=== PATIENT | female | born 1950 | race Caucasian/White ===

== ENCOUNTER 2019-07-06 07:54 | Outpatient (CLI) | payer MEDICARE, SELFPAY ==
[2019-07-06 08:44] LABS: Basophils Absolute Auto 0.1 K/mm3 (0.0-0.1); Basophils Percent Auto 0.5 % (0.2-1.2); Eosinophils Absolute Auto 0.1 K/mm3 (0-0.3); Eosinophils Percent Auto 1.3 % (0-4.4); Hematocrit 44.4 % (37.0-47.0); Hemoglobin 14.4 g/dL (12.0-15.0); Immature Granulocyte Absolute 0.04 K/mm3 (0.00-0.031); Immature Granulocyte Percent A 0.4 % (0-0.5); Lymphocytes Absolute Auto 3.48 K/mm3 (0.9-3.2); Lymphocytes Percent Auto 31.6 % (18.3-44.2); Mean Corpuscular HGB Conc 32.4 g/dl (32-36); Mean Corpuscular Volume 89.3 fl (80-100); Mean Platelet Volume 12.6 fl (7.4-10.4); Monocytes Absolute Auto 0.8 K/mm3 (0.1-0.6); Monocytes Percent Auto 6.9 % (2.6-8.5); Neutrophils Absolute Auto 6.5 K/mm3 (1.3-6.7); Neutrophils Percent Auto 59.3 % (45.5-73.1); Platelet Count Result 210 k/mm3 (150-375); Red Blood Count 4.97 M/mm3 (4.2-5.4); Red Cell Distribution Width 13.3 % (11.5-14.5)
[2019-07-06 08:58] LABS: Alanine Aminotransferase 50 U/L (4-35); Albumin Level 4.5 g/dL (3.5-5.1); Alkaline Phosphatase 56 U/L (38-126); Aspartate Amino Transferase 37 U/L (14-36); Bilirubin,Total 0.9 mg/dL (0.2-1.3); Blood Urea Nitrogen 15 mg/dL (7-17); Calcium 9.3 mg/dL (8.4-10.2); Carbon Dioxide 28 mmol/L (22-30); Chloride 99 mmol/L (98-107); Cholesterol 189 mg/dL (0-200); Estimated Glomerular Filt Rate > 60; Glucose 139 mg/dL (65-105); HDL Direct 42 mg/dL; Potassium 4.2 mmol/L (3.4-5.0); Sodium 137 mmol/L (137-145); Triglycerides 243 mg/dL (<150)
[2019-07-06 09:09] LABS: LDL Cholesterol Direct 104 mg/dL
[2019-07-06 09:12] LABS: Hemoglobin A1C 6.7 % (<5.7)
[2019-07-06 09:43] LABS: Vitamin D 25 Hydroxy 42.1 ng/mL
[2019-07-06 09:46] LABS: Creatinine Urine 85.8 mg/dL
[2019-07-06 10:00] LABS: MALB Creatinine Ratio < 7.0 mg/g (0-30); Microalbumin Urine Random < 6.0 mg/L (0-16.7)
== END 2019-07-06 07:55 | disposition home or self-care (01) ==
PROVIDERS: PCP Family Medicine; Visit Provider Family Medicine
DX: E55.9 Vitamin D deficiency, unspecified (principal); I10 Essential (primary) hypertension; E11.9 Type 2 diabetes mellitus without complications; E78.5 Hyperlipidemia, unspecified
CPT/HCPCS: 36415; 80053; 80061; 82043; 82306; 83036; 84443; 85025

== ENCOUNTER 2019-07-27 09:43 | Outpatient (CLI) | payer MEDICARE, SELFPAY ==
--- NOTE | ~2019-07-27 | MM_ITS ---
EXAMINATION: MM screening [facility] BI w vesna HISTORY: Screening mammogram TECHNIQUE: Craniocaudal and mediolateral oblique 3-D tomosynthesis images were obtained and synthetic 2-D images were generated. CAD analysis was submitted and interpreted. COMPARISON: 07/13/2018, 06/30/2017, 06/13/2016 BREAST PARENCHYMAL COMPOSITION: There are scattered areas of fibroglandular density. FINDINGS: Scattered benign-appearing calcifications are present. There is no evidence of suspicious m ass, calcification, or architectural distortion to suggest malignancy in either breast. There has bee n no suspicious interval change. IMPRESSION: 1. No mammographic evidence of malignancy. 2. Recommend routine screening mammography in one year. BI-RADS Category 2: Benign finding(s). Reviewed, dictated and finalized at location A. RNED ITEM CLERK
--- NOTE | ~2019-07-27 | DEXA_ITS ---
Bone Density Report Name: Jeri Do Age: 69 Sex: Female Ethnicity: White Date of : 1950 Indication: osteopenia; monitoring treatment; hysterectomy; Referring Provider: Salomon De Luna Study: Bone densitometry was performed. Exam Date: July 27, 2019 Accession number: [id number] Bone Density: Region BMD T-score Z-score Classification AP Spine (L1, L2, L3) 0.724 -2.7 -0.7 Osteoporosis Femoral Neck (Left) 0.550 -2.7 -0.9 Osteoporosis Total Hip (Left) 0.714 -1.9 -0.4 Osteopenia Total Hip Bilateral Avg 0.698 -2.0 -0.6 Osteopenia Femoral Neck (Right) 0.583 -2.4 -0.6 Osteopenia Total Hip (Right) 0.682 -2.1 -0.7 Osteopenia World Health Organization criteria for BMD impression classify patients as: Normal (T-score at or above -1.0), Osteopenia (T-score between -1.0 and -2.5), or Osteoporosis (T-score at or below -2.5). 10-year Fracture Risk: FRAX not reported because: Some T-score for Spine Total or Hip Total or Femoral Neck at or below -2.5 Treated for osteoporosis Previous Exams: Region Exam Age BMD T-score BMD Change BMD Change Date g/cm2 vs Baseline vs Previous AP Spine(L1, L2, L3) 07/27/2019 69 0.724 -2.7 0.012(1.7%)# -0.027(-3.6%)* 06/05/2014 64 0.751 -2.4 0.039(5.5%)# 0.039(5.5%)# 05/25/2012 62 0.712 -2.8 Total Hip(Left) 07/27/2019 69 0.714 -1.9 0.001(0.2%)# -0.016(-2.2%) 06/05/2014 64 0.731 -1.7 0.018(2.5%)# 0.018(2.5%)# 05/25/2012 62 0.713 -1.9 Total Hip(Right) 07/27/2019 69 0.682 -2.1 -0.012(-1.7%)# -0.010(-1.4%) 06/05/2014 64 0.692 -2.1 -0.002(-0.3%)# -0.002(-0.3%)# 05/25/2012 62 0.694 -2.0 *Denotes significance at 95% confidence level, LSC for AP Spine = 0.022 g/cm2, LSC for Total Hip = 0.027 g/cm2 Clinical Information Provided by Patient: Is being treated for osteoporosis Has used the following medications: Fosamax (i.e. alendronate), Vitamin D Has the following medical conditions: Hysterectomy Patient maximum height was 62 Menopause Age: 44 No regular weight bearing exercise Drinks caffeinated beverages Onset of menses at age 12 Number of children 0 Impression: The patient has osteoporosis, based on the Total Spine T-score. The BMD for the AP Spine(L1, L2, L3) decreased, changing by -3.6% since the last DXA exam. Discussion: SIGNIFICANT BONE LOSS OBSERVED. Adherence to therapy (including calcium and vitamin D intake) should be assessed. If compliance is not a factor,
== END 2019-07-27 09:44 | disposition home or self-care (01) ==
LOC: ANHIMG 09:48
PROVIDERS: PCP Family Medicine; Visit Provider Family Medicine
DX: M81.0 Age-related osteoporosis without current pathological fracture (principal); Z12.31 Encounter for screening mammogram for malignant neoplasm of breast
CPT/HCPCS: 77063; 77067; 77080

== ENCOUNTER 2020-04-30 09:03 | Outpatient (CLI) | payer MEDICARE, SELFPAY ==
[2020-04-30 09:35] LABS: Alanine Aminotransferase 60 U/L (4-35); Albumin Level 4.5 g/dL (3.5-5.1); Alkaline Phosphatase 49 U/L (38-126); Anion Gap 8 mmol/L (8-16); Aspartate Amino Transferase 54 U/L (14-36); Bilirubin,Total 1.1 mg/dL (0.2-1.3); Blood Urea Nitrogen 13 mg/dL (7-17); Calcium 9.6 mg/dL (8.4-10.2); Carbon Dioxide 29 mmol/L (22-30); Chloride 101 mmol/L (98-107); Estimated Glomerular Filt Rate > 60; Glucose 200 mg/dL (65-105); Potassium 4.4 mmol/L (3.4-5.0); Sodium 138 mmol/L (137-145)
[2020-04-30 09:37] LABS: Hemoglobin A1C 6.4 % (<5.7)
== END 2020-04-30 09:04 | disposition home or self-care (01) ==
PROVIDERS: PCP Family Medicine; Visit Provider Family Medicine
DX: E11.9 Type 2 diabetes mellitus without complications (principal); I10 Essential (primary) hypertension
CPT/HCPCS: 36415; 80053; 83036

== ENCOUNTER 2020-08-02 07:45 | Outpatient (CLI) | payer MEDICARE, SELFPAY ==
[2020-08-02 08:03] LABS: Basophils Absolute Auto 0.1 K/mm3 (0.0-0.1); Basophils Percent Auto 0.6 % (0.2-1.2); Eosinophils Absolute Auto 0.1 K/mm3 (0-0.3); Eosinophils Percent Auto 1.4 % (0-4.4); Hematocrit 44.6 % (37.0-47.0); Hemoglobin 14.6 g/dL (12.0-15.0); Immature Granulocyte Absolute 0.03 K/mm3 (0.00-0.031); Immature Granulocyte Percent A 0.3 % (0-0.5); Lymphocytes Absolute Auto 3.03 K/mm3 (0.9-3.2); Lymphocytes Percent Auto 30.7 % (18.3-44.2); Mean Corpuscular HGB Conc 32.7 g/dl (32-36); Mean Corpuscular Hemoglobin 29.6 pg (26-34); Mean Corpuscular Volume 90.3 fl (80-100); Mean Platelet Volume 12.3 fl (7.4-10.4); Monocytes Absolute Auto 0.8 K/mm3 (0.1-0.6); Monocytes Percent Auto 8.4 % (2.6-8.5); Neutrophils Absolute Auto 5.8 K/mm3 (1.3-6.7); Neutrophils Percent Auto 58.6 % (45.5-73.1); Platelet Count Result 199 k/mm3 (150-375); Red Blood Count 4.94 M/mm3 (4.2-5.4); Red Cell Distribution Width 13.4 % (11.5-14.5); White Blood Count 9.9 K/mm3 (4.5-10.0)
[2020-08-02 08:19] LABS: Alanine Aminotransferase 71 U/L (4-35); Albumin Level 4.3 g/dL (3.5-5.1); Alkaline Phosphatase 52 U/L (38-126); Anion Gap 8 mmol/L (8-16); Aspartate Amino Transferase 65 U/L (14-36); Bilirubin,Total 1.1 mg/dL (0.2-1.3); Blood Urea Nitrogen 13 mg/dL (7-17); Calcium 9.2 mg/dL (8.4-10.2); Carbon Dioxide 26 mmol/L (22-30); Chloride 104 mmol/L (98-107); Cholesterol 202 mg/dL (0-200); Estimated Glomerular Filt Rate > 60; Glucose 172 mg/dL (65-105); HDL Direct 43 mg/dL; Potassium 4.7 mmol/L (3.4-5.0); Sodium 138 mmol/L (137-145); Triglycerides 228 mg/dL (<150)
[2020-08-02 08:30] LABS: LDL Cholesterol Direct 115 mg/dL
[2020-08-02 09:00] LABS: Vitamin D 25 Hydroxy 51.2 ng/mL
[2020-08-02 09:06] LABS: Hemoglobin A1C 6.6 % (<5.7)
[2020-08-02 09:35] LABS: MALB Creatinine Ratio 5.9 mg/g (0-30); Microalbumin Urine Random 7.6 mg/L (0-16.7)
== END 2020-08-02 07:46 | disposition home or self-care (01) ==
PROVIDERS: PCP Family Medicine; Visit Provider Family Medicine
DX: E78.5 Hyperlipidemia, unspecified (principal); E11.9 Type 2 diabetes mellitus without complications; Z86.79 Personal history of other diseases of the circulatory system; E55.9 Vitamin D deficiency, unspecified
CPT/HCPCS: 36415; 80053; 80061; 82043; 82306; 83036; 84443; 85025

== ENCOUNTER 2020-08-03 15:10 | Outpatient (CLI) | payer MEDICARE, SELFPAY ==
--- NOTE | ~2020-08-03 | MM_ITS ---
EXAMINATION: MM screening [facility] w vesna HISTORY: Screening TECHNIQUE: Craniocaudal and mediolateral oblique 3-D tomosynthesis images were obtained and synthetic 2-D images were generated. CAD analysis was submitted and interpreted. COMPARISON: Comparison to multiple prior studies sequentially, with oldest reviewed study dated 05/09. BREAST PARENCHYMAL COMPOSITION: The breasts are heterogeneously dense, which may obscure small masses . FINDINGS: There are developing asymmetries medially in the left breast, best seen on CC view. The rig ht breast is stable without evidence for malignancy. IMPRESSION: 1. Developing left breast asymmetries. 2. Additional mammographic views and possible breast ultrasound are recommended. BI-RADS Category 0: Incomplete: Needs additional imaging evaluation. Reviewed, dictated and finalized at location A. MAKING SUPERVISOR IMPRESSION: 1. Developing left breast asymmetries. 2. Additional mammographic views and possible breast ultrasound are recommended . BI-RADS Category 0: Incomplete: Needs additional imaging evaluation.
== END 2020-08-03 15:11 | disposition home or self-care (01) ==
LOC: ANHIMG 15:12
PROVIDERS: PCP Family Medicine; Visit Provider Family Medicine
DX: Z12.31 Encounter for screening mammogram for malignant neoplasm of breast (principal); R92.8 Other abnormal and inconclusive findings on diagnostic imaging of breast
CPT/HCPCS: 77063; 77067

== ENCOUNTER 2020-08-07 09:44 | Outpatient (CLI) | payer MEDICARE, SELFPAY | END 2020-08-07 09:45 | disposition home or self-care (01) | LOC: ANHCOVIDVC 09:45 | PROVIDERS: PCP Family Medicine; Visit Provider Family Medicine | DX: Z23 Encounter for immunization (principal) | CPT/HCPCS: 0001A; 91300 ==

== ENCOUNTER 2020-08-08 09:36 | Outpatient (CLI) | payer MEDICARE, SELFPAY ==
--- NOTE | ~2020-08-08 | US_ITS ---
EXAMINATION: US right upper quadrant EXAM DATE: 08/08/2020 10:14 INDICATION: R74.8 - Abnormal levels of other serum enzymes. TECHNIQUE: Multiple grayscale and Doppler images of the abdomen right upper quadrant were obtained (b y a technologist who performed the scan) and subsequently reviewed. There is no prior study for margaret silva. FINDINGS: The pancreatic head and body are normal in appearance. The pancreatic tail is not visualized. There is echogenic liver parenchyma with poor penetration, hepatic steatosis. There are no focal liver le sions identified. There is no evidence of intrahepatic biliary duct dilation. Portal venous flow w as seen in the hepatopedal, normal direction and has normal Doppler waveform. No right-sided hydrone phrosis. Common bile duct measures 3 mm, which is normal. The gallbladder wall is normal in thickness, with ex pected amount of distention. No sonographic evidence of pericholecystic fluid. There is no cholelit hiases. Technologist performing exam reports patient did not demonstrate sonographic Richards's sign. Please note that this sign is less reliable in patients who have received pain medication. IMPRESSION: 1. Hepatic steatosis. Reviewed, dictated and finalized at location A. ELEVATOR WORKER IMPRESSION: 1. Hepatic steatosis.
== END 2020-08-08 09:37 | disposition home or self-care (01) ==
PROVIDERS: PCP Family Medicine; Visit Provider Family Medicine
DX: R74.8 Abnormal levels of other serum enzymes (principal); K76.0 Fatty (change of) liver, not elsewhere classified
CPT/HCPCS: 76705

== ENCOUNTER 2020-08-16 12:18 | Outpatient (CLI) | payer MEDICARE, SELFPAY ==
--- NOTE | ~2020-08-16 | MM_ITS ---
EXAMINATION: MM diagnostic mammo unilat LT HISTORY: Developing left breast asymmetries reported on 08/03/2020 screening mammogram examination TECHNIQUE: Additional 3-D tomosynthesis images of the left breast were performed and synthetic 2-D im ages were generated. Rolled medial and rolled lateral craniocaudal views of left breast. CAD analysis was submitted and interpreted. High resolution upper inner and lower inner left breast ultrasound wa s performed. COMPARISON: 08/03/2020 bilateral digital screening mammogram FINDINGS: MAMMOGRAPHIC FINDINGS: No reproducible mass or architectural distortion is detected. ULTRASOUND: There is no evidence of l abnormal solid or cystic lesion in the upper inner or lower inner quadrants . IMPRESSION: 1. No mammographic evidence of malignancy 2. Routine mammographic screening is recommended. BI-RADS Category 1: Negative Reviewed, dictated and finalized at location A. LE LEAK AND SQUEAK REPAIRER
--- NOTE | ~2020-08-16 | US_ITS ---
US breast LT limited DATE: 08/16/2020 13:06 Please refer to 08/16/2020 combined left diagnostic mammogram and left breast ultrasound report. IMPRESSION: BI-RADS Category 1: Negative Reviewed, dictated and finalized at Location A. Reviewed, dictated and finalized at location A. WARE MANAGER
== END 2020-08-16 12:19 | disposition home or self-care (01) ==
LOC: ANHIMG 12:19
PROVIDERS: PCP Family Medicine; Visit Provider Family Medicine
DX: R92.8 Other abnormal and inconclusive findings on diagnostic imaging of breast (principal)
CPT/HCPCS: 76642; 77065

== ENCOUNTER 2020-08-28 09:45 | Outpatient (CLI) | payer MEDICARE, SELFPAY | END 2020-08-28 09:46 | disposition home or self-care (01) | LOC: ANHCOVIDVC 09:45 | PROVIDERS: PCP Family Medicine | DX: Z23 Encounter for immunization (principal) | CPT/HCPCS: 0002A; 91300 ==

== ENCOUNTER 2021-09-19 01:11 | Day surgery (SDC) | payer MEDICARE, SELFPAY ==
[2021-09-05 15:58] VITALS: BMI 25.8
[2021-09-19 06:42] LABS: Glucose Point of Care 210 mg/dl (65-105)
[2021-09-19 06:45] VITALS: BP 150/91; PULSE 100; RESP 16; TEMP 36.5; O2SAT 99
[2021-09-19] MEDS: LACTATED RINGERS 1,000 ML 150 ML IV CONT (06:48)
--- NOTE | 2021-09-19 07:04 | WPDANESEPPF ---
Anes - Initial Pre Proc Eval Procedure: Operation Date: 09/19/21 08:00 Proposed Procedures p Screening Colonoscopy - Jeromy Nugent MD Date/Time: 09/19/21 07:04 Surgeon: Jeromy Nugent MD Pre Op Diagnosis: hx of colon polyps Patient Data Age: 71 Gender: F Height: 1.57 m Weight: 63 kg Last Vital Signs Temp 36.5 C 09/19/21 06:45 Pulse 100 09/19/21 06:45 Resp 16 09/19/21 06:45 BP 150/91 H 09/19/21 06:45 Pulse Ox 99 09/19/21 06:45 Allergies Allergy/AdvReac Type Severity Reaction Status Date / Time No Known Allergies Allergy Verified 09/19/21 06:42 Home Medications Medication Instructions Recorded Confirmed Type metoprolol succinate 25 mg 25 mg PO DAILY #90 tablet 05/23/21 09/19/21 Rx tablet,extended release 24 hr cholecalciferol (vitamin D3) 50 50 mcg PO DAILY 08/05/21 09/19/21 History mcg (2,000 unit) capsule glipizide 10 mg tablet, extended 10 mg PO DAILY #90 tablet 08/06/21 09/19/21 Rx release 24 hr loratadine [Claritin] 10 mg PO DAILY PRN 09/05/21 09/19/21 History metformin 1,000 mg PO HS 09/05/21 09/19/21 History alendronate 70 mg tablet 70 mg PO WEEKLY #12 tablet 09/17/21 09/19/21 Rx Laboratory Tests 09/19/21 06:38 POC Capillary Glucose 210 mg/dl H mg/dl (65-105) Patient hx anesthesia problems: none Family hx anesthesia problems: none Results Review: All pre-operative results and documents have been reviewed as part of the pre-operative evaluation. [facility] Past Medical History Medical History Dyslipidemia Elevated liver enzymes Essential (primary) hypertension Hepatic steatosis History of supraventricular tachycardia Osteoporosis without current pathological fracture Type 2 diabetes mellitus without complication, without long-term current use of insulin Vitamin D deficiency Surgical History Surgical History History of hernia repair (~2009) Incisional hernia repair 2009 History of total abdominal hysterectomy and bilateral salpingo-oophorectomy (~1973) 1973 Hx of colonoscopy (~2015) 2016 Hx of colonoscopy with polypectomy (~2015) 2015 Hx of dilation and curettage (~1970) 1970 S/P laparoscopic hernia repair (~2009) Status post tonsillectomy and adenoidectomy (~1956) 1956 Family History Family History Father Family history of Parkinson's disease Carcinoma of colon Sibling Family history of diabetes mellitus in first degree relative Mother Family history of heart disease in male family member before age 55 Other Diabetes mellitus Family history of cardiovascular disease Family history of coronary artery disease Hypertension Social History Social History Smoking status: Never smoker Second hand tobacco smoke exposure: No Alcohol intake: never Substance use: never Substance use type: does not use Living arrangements: with family Spiritual care concerns: No Anes - Eval Final PreProcedure Day of Procedure 09/19/21 07:04 Patient weight: normal Heart: regular rate and rhythm Lungs: clear to auscultation Airway: Mallampati scale class II Neurological: alert and oriented Last oral intake: >/= 8 hours ASA classification: II Emergent: no Anesthetic plan: proceed Anesthesia type and monitoring: general GIVS and standard monitoring Results Review: All pre-operative results and documents have been reviewed as part of the pre-operative evaluation. Informed Consent: The patient's anesthetic plan and its attendant risks and benefits were discussed with the patient/family/POA. Questions were solicited and answers provided to the satisfaction of the patient/family/POA.
--- NOTE | 2021-09-19 07:46 | WPDGICN ---
Assessment and Plan Assessment and plan (1) History of colon polyps: Code(s): Z86.010 - Personal history of colonic polyps Status: Acute Assessment and Plan: Patient has a personal history of colon polyps in the past. Plan is for surveillance colonoscopy at 5 year intervals. Additionally she has a family history of colon polyps in her sister and mother. And a family history is small-bowel cancer in her father and 2 uncles. (2) Family history of colonic polyps: Code(s): Z83.71 - Family history of colonic polyps Status: Acute GI Consult Note Consult date/time: 09/19/21 07:46 HPI: Jeri Do is a 71 year old female Presents for screening colonoscopy. Patient's current weight appetite and bowel movements are normal. She denies abdominal pain. She has had no bleeding. Patient most recent colonoscopy 2015 revealed hyperplastic polyp. She has a history of an adenomatous colon polyp removed in 2009. Patient's mother and sister both have had colon polyps. Family history is significant her father and 2 uncles all of had small bowel carcinoma. Patient presents today for screening colonoscopy. Review of Systems Review of Systems: All systems reviewed & are unremarkable except as noted in HPI and below PMFSH Past Medical History Medical History Dyslipidemia Elevated liver enzymes Essential (primary) hypertension Hepatic steatosis History of supraventricular tachycardia Osteoporosis without current pathological fracture Type 2 diabetes mellitus without complication, without long-term current use of insulin Vitamin D deficiency Surgical History Surgical History History of hernia repair (~2009) Incisional hernia repair 2010 History of total abdominal hysterectomy and bilateral salpingo-oophorectomy (~1973) 1973 Hx of colonoscopy (~2015) 2015 Hx of colonoscopy with polypectomy (~2015) 2016 Hx of dilation and curettage (~1970) 1970 S/P laparoscopic hernia repair (~2009) Status post tonsillectomy and adenoidectomy (~1956) 1956 Family History Family History Father Family history of Parkinson's disease Carcinoma of colon Sibling Family history of diabetes mellitus in first degree relative Mother Family history of heart disease in male family member before age 55 Other Diabetes mellitus Family history of cardiovascular disease Family history of coronary artery disease Hypertension Social History Social History Smoking status: Never smoker Second hand tobacco smoke exposure: No Alcohol intake: never Substance use: never Substance use type: does not use Living arrangements: with family Spiritual care concerns: No Meds Home Medications and Allergies Home Medications Medication Instructions Recorded Confirmed Type metoprolol succinate 25 mg 25 mg PO DAILY #90 tablet 05/23/21 09/19/21 Rx tablet,extended release 24 hr cholecalciferol (vitamin D3) 50 50 mcg PO DAILY 08/05/21 09/19/21 History mcg (2,000 unit) capsule glipizide 10 mg tablet, extended 10 mg PO DAILY #90 tablet 08/06/21 09/19/21 Rx release 24 hr loratadine [Claritin] 10 mg PO DAILY PRN 09/05/21 09/19/21 History metformin 1,000 mg PO HS 09/05/21 09/19/21 History alendronate 70 mg tablet 70 mg PO WEEKLY #12 tablet 09/17/21 09/19/21 Rx Allergies Allergy/AdvReac Type Severity Reaction Status Date / Time No Known Allergies Allergy Verified 09/19/21 06:42 Vital Signs Vital Signs - 24 hr 09/19/21 06:45 Temperature 97.7 F Pulse Rate 100 Respiratory Rate 16 Blood Pressure 150/91 H Pulse Oximetry 99 Exam Narrative: Physical exam reveals patient to be alert. Vital signs stable. HEENT exam is unremarkable. Patient is anicteric. Lungs are clear t
[2021-09-19 08:10] VITALS: BP 91/52; PULSE 78; RESP 18; O2SAT 96
[2021-09-19 08:20] VITALS: BP 110/64; PULSE 80; RESP 20; O2SAT 98
[2021-09-19 08:30] VITALS: BP 125/72; PULSE 70; RESP 18; O2SAT 99
== END 2021-09-19 08:43 | disposition home or self-care (01) ==
PROVIDERS: PCP Family Medicine; Visit Provider Internal Medicine Gastroenterology
PROC: 0DJD8ZZ Inspection of Lower Intestinal Tract, Via Natural or Artificial Opening Endoscopic (ICD-10-PCS; CPT 45378; principal; 2021-09-19 08:00)
DX: Z12.11 Encounter for screening for malignant neoplasm of colon (principal); Z80.0 Family history of malignant neoplasm of digestive organs; E78.5 Hyperlipidemia, unspecified; I10 Essential (primary) hypertension; K76.0 Fatty (change of) liver, not elsewhere classified; M81.0 Age-related osteoporosis without current pathological fracture; E11.9 Type 2 diabetes mellitus without complications; E55.9 Vitamin D deficiency, unspecified; K64.8 Other hemorrhoids
CPT/HCPCS: G0105; 82948; J2001; J2704; J7120

== ENCOUNTER 2021-09-24 16:08 | Outpatient (CLI) | payer MEDICARE, SELFPAY ==
--- NOTE | ~2021-09-24 | MM_ITS ---
EXAMINATION: MM screening [facility] w vesna HISTORY: Screening mammogram TECHNIQUE: Craniocaudal and mediolateral oblique 3-D tomosynthesis images were obtained and synthetic 2-D images were generated. CAD analysis was submitted and interpreted. COMPARISON: 08/16/2020 diagnostic left mammogram and limited left breast ultrasound 08/03/2020, bilateral screening mammogram examinations BREAST PARENCHYMAL COMPOSITION: There are scattered areas of fibroglandular density. FINDINGS: There is no evidence of suspicious mass, calcification, or architectural distortion to sugg est malignancy in either breast. There has been no suspicious interval change. IMPRESSION: 1. No mammographic evidence of malignancy. 2. Recommend routine screening mammography in one year. BI-RADS Category 1: Negative Reviewed, dictated and finalized at location A.
== END 2021-09-24 16:09 | disposition home or self-care (01) ==
PROVIDERS: PCP Family Medicine; Visit Provider Family Medicine
DX: Z12.31 Encounter for screening mammogram for malignant neoplasm of breast (principal)
CPT/HCPCS: 77063; 77067

== ENCOUNTER 2022-02-03 11:47 | Outpatient (CLI) | payer MEDICARE, SELFPAY ==
[2022-02-03 18:29] LABS: Basophils Absolute Auto 0.1 K/mm3 (0.0-0.1); Basophils Percent Auto 0.6 % (0.2-1.2); Eosinophils Absolute Auto 0.2 K/mm3 (0-0.3); Eosinophils Percent Auto 1.8 % (0-4.4); Hematocrit 46.6 % (37.0-47.0); Hemoglobin 14.4 g/dL (12.0-15.0); Immature Granulocyte Absolute 0.04 K/mm3 (0.00-0.031); Immature Granulocyte Percent A 0.3 % (0-0.5); Immature Platelet Fraction Pct 18.8 % (0.9-11.2); Lymphocytes Absolute Auto 4.65 K/mm3 (0.9-3.2); Mean Corpuscular HGB Conc 30.9 g/dl (32-36); Mean Corpuscular Hemoglobin 28.1 pg (26-34); Mean Corpuscular Volume 90.8 fl (80-100); Mean Platelet Volume 13.3 fl (7.4-10.4); Monocytes Absolute Auto 0.9 K/mm3 (0.1-0.6); Monocytes Percent Auto 6.8 % (2.6-8.5); Neutrophils Absolute Auto 6.7 K/mm3 (1.3-6.7); Neutrophils Percent Auto 53.5 % (45.5-73.1); Platelet Count Result 244 k/mm3 (150-375); Red Blood Count 5.13 M/mm3 (4.2-5.4); Red Cell Distribution Width 13.8 % (11.5-14.5); White Blood Count 12.6 K/mm3 (4.5-10.0)
[2022-02-03 18:59] LABS: Alanine Aminotransferase 59 U/L (6-35); Alkaline Phosphatase 73 U/L (38-126); Anion Gap 4 mmol/L (8-16); Aspartate Amino Transferase 59 U/L (14-36); Blood Urea Nitrogen 13 mg/dL (7-17); Calcium 9.8 mg/dL (8.4-10.2); Carbon Dioxide 31 mmol/L (22-30); Chloride 100 mmol/L (98-107); Cholesterol 226 mg/dL (0-200); Estimated Glomerular Filt Rate > 60; Glucose 108 mg/dL (65-110); HDL Direct 47 mg/dL; Potassium 4.4 mmol/L (3.4-5.0); Sodium 135 mmol/L (137-145); Triglycerides 247 mg/dL (<150)
[2022-02-03 19:09] LABS: Creatinine Urine 55.6 mg/dL
[2022-02-03 19:10] LABS: LDL Cholesterol Direct 121 mg/dL
[2022-02-03 19:33] LABS: Microalbumin Urine Random < 6.0 mg/L (0-16.7)
[2022-02-03 19:34] LABS: MALB Creatinine Ratio < 10.8 mg/g (0-30)
[2022-02-03 19:55] LABS: Vitamin D 25 Hydroxy 56.6 ng/mL
== END 2022-02-03 11:48 | disposition home or self-care (01) ==
PROVIDERS: PCP Family Medicine; Visit Provider Nurse Practitioner
DX: E78.5 Hyperlipidemia, unspecified (principal); E55.9 Vitamin D deficiency, unspecified; I10 Essential (primary) hypertension; E11.9 Type 2 diabetes mellitus without complications
CPT/HCPCS: 36415; 80053; 80061; 82043; 82306; 83036; 85025; 85055

== ENCOUNTER 2022-03-05 15:23 | Outpatient (CLI) | payer MEDICARE, SELFPAY ==
[2022-03-05 20:26] LABS: Basophils Absolute Auto 0.1 K/mm3 (0.0-0.1); Basophils Percent Auto 0.5 % (0.2-1.2); Eosinophils Absolute Auto 0.3 K/mm3 (0-0.3); Eosinophils Percent Auto 1.9 % (0-4.4); Hematocrit 44.6 % (37.0-47.0); Immature Granulocyte Absolute 0.03 K/mm3 (0.00-0.031); Immature Granulocyte Percent A 0.2 % (0-0.5); Immature Platelet Fraction Pct 19.3 % (0.9-11.2); Lymphocytes Absolute Auto 4.41 K/mm3 (0.9-3.2); Lymphocytes Percent Auto 33.1 % (18.3-44.2); Mean Corpuscular HGB Conc 31.4 g/dl (32-36); Mean Corpuscular Hemoglobin 28.8 pg (26-34); Mean Corpuscular Volume 91.8 fl (80-100); Mean Platelet Volume 13.8 fl (7.4-10.4); Monocytes Absolute Auto 1.6 K/mm3 (0.1-0.6); Monocytes Percent Auto 11.6 % (2.6-8.5); Neutrophils Percent Auto 52.7 % (45.5-73.1); Platelet Count Result 218 k/mm3 (150-375); Red Blood Count 4.86 M/mm3 (4.2-5.4); Red Cell Distribution Width 14.1 % (11.5-14.5); White Blood Count 13.3 K/mm3 (4.5-10.0)
== END 2022-03-05 15:24 | disposition home or self-care (01) ==
PROVIDERS: PCP Family Medicine; Visit Provider Nurse Practitioner
DX: D72.829 Elevated white blood cell count, unspecified (principal)
CPT/HCPCS: 36415; 85025; 85055

== ENCOUNTER 2022-08-13 10:41 | Outpatient (CLI) | payer MEDICARE, SELFPAY ==
[2022-08-13 18:09] LABS: Basophils Absolute Auto 0.1 K/mm3 (0.0-0.1); Basophils Percent Auto 0.5 % (0.2-1.2); Eosinophils Absolute Auto 0.2 K/mm3 (0-0.3); Eosinophils Percent Auto 1.3 % (0-4.4); Hematocrit 46.1 % (37.0-47.0); Hemoglobin 14.4 g/dL (12.0-15.0); Immature Granulocyte Absolute 0.05 K/mm3 (0.00-0.031); Immature Granulocyte Percent A 0.4 % (0-0.5); Immature Platelet Fraction Pct 18.3 % (0.9-11.2); Lymphocytes Absolute Auto 4.22 K/mm3 (0.9-3.2); Lymphocytes Percent Auto 32.6 % (18.3-44.2); Mean Corpuscular HGB Conc 31.2 g/dl (32-36); Mean Corpuscular Hemoglobin 28.3 pg (26-34); Mean Corpuscular Volume 90.6 fl (80-100); Mean Platelet Volume 13.2 fl (7.4-10.4); Monocytes Percent Auto 7.3 % (2.6-8.5); Neutrophils Absolute Auto 7.5 K/mm3 (1.3-6.7); Neutrophils Percent Auto 57.9 % (45.5-73.1); Platelet Count Result 241 k/mm3 (150-375); Red Blood Count 5.09 M/mm3 (4.2-5.4)
[2022-08-13 18:16] LABS: Alanine Aminotransferase 49 U/L (6-35); Albumin Level 4.8 g/dL (3.5-5.1); Alkaline Phosphatase 61 U/L (38-126); Anion Gap 7 mmol/L (8-16); Aspartate Amino Transferase 46 U/L (14-36); Bilirubin,Total 1.3 mg/dL (0.2-1.3); Blood Urea Nitrogen 14 mg/dL (7-17); Calcium 9.2 mg/dL (8.4-10.2); Carbon Dioxide 31 mmol/L (22-30); Chloride 104 mmol/L (98-107); Cholesterol 216 mg/dL (0-200); Estimated Glomerular Filt Rate > 60; Glucose 97 mg/dL (65-110); HDL Direct 45 mg/dL; Potassium 4.4 mmol/L (3.4-5.0); Sodium 142 mmol/L (137-145); Triglycerides 278 mg/dL (<150)
[2022-08-13 18:29] LABS: LDL Cholesterol Direct 117 mg/dL
[2022-08-13 18:50] LABS: Creatinine Urine 49.6 mg/dL
[2022-08-13 18:57] LABS: Vitamin D 25 Hydroxy 57.1 ng/mL
[2022-08-13 20:01] LABS: MALB Creatinine Ratio < 12.1 mg/g (0-30); Microalbumin Urine Random < 6.0 mg/L (0-16.7)
== END 2022-08-13 10:42 | disposition home or self-care (01) ==
LOC: ANHGOSHLAB 10:42
PROVIDERS: PCP Family Medicine; Visit Provider Family Medicine
DX: E55.9 Vitamin D deficiency, unspecified (principal); E11.9 Type 2 diabetes mellitus without complications; I10 Essential (primary) hypertension; H61.21 Impacted cerumen, right ear; E78.5 Hyperlipidemia, unspecified; E53.8 Deficiency of other specified B group vitamins
CPT/HCPCS: 36415; 80053; 80061; 82043; 82306; 82607; 83036; 84443; 85025; 85055

== ENCOUNTER 2023-02-18 10:25 | Outpatient (CLI) | payer MEDICARE, SELFPAY ==
[2023-02-18 19:08] LABS: Basophils Absolute Auto 0.1 K/mm3 (0.0-0.1); Basophils Percent Auto 0.5 % (0.2-1.2); Eosinophils Absolute Auto 0.1 K/mm3 (0-0.3); Eosinophils Percent Auto 0.7 % (0-4.4); Hematocrit 44.9 % (37.0-47.0); Hemoglobin 14.1 g/dL (12.0-15.0); Immature Granulocyte Absolute 0.03 K/mm3 (0.00-0.031); Immature Granulocyte Percent A 0.3 % (0-0.5); Immature Platelet Fraction Pct 18.6 % (0.9-11.2); Lymphocytes Percent Auto 29.1 % (18.3-44.2); Mean Corpuscular HGB Conc 31.4 g/dl (32-36); Mean Corpuscular Hemoglobin 28.3 pg (26-34); Mean Corpuscular Volume 90.2 fl (80-100); Mean Platelet Volume 13.5 fl (7.4-10.4); Monocytes Absolute Auto 0.8 K/mm3 (0.1-0.6); Monocytes Percent Auto 6.9 % (2.6-8.5); Neutrophils Absolute Auto 6.9 K/mm3 (1.3-6.7); Neutrophils Percent Auto 62.5 % (45.5-73.1); Platelet Count Result 221 k/mm3 (150-375); Red Blood Count 4.98 M/mm3 (4.2-5.4); Red Cell Distribution Width 14.3 % (11.5-14.5)
[2023-02-18 19:23] LABS: Alanine Aminotransferase 48 U/L (6-35); Albumin Level 4.2 g/dL (3.5-5.1); Alkaline Phosphatase 54 U/L (38-126); Anion Gap 6 mmol/L (8-16); Aspartate Amino Transferase 42 U/L (14-36); Blood Urea Nitrogen 14 mg/dL (7-17); Calcium 9.2 mg/dL (8.4-10.2); Carbon Dioxide 31 mmol/L (22-30); Chloride 102 mmol/L (98-107); Estimated Glomerular Filt Rate > 60; Glucose 186 mg/dL (65-110); Potassium 4.2 mmol/L (3.4-5.0); Sodium 139 mmol/L (137-145)
[2023-02-18 20:56] LABS: Hemoglobin A1C 6.9 % (<5.7)
== END 2023-02-18 10:26 | disposition home or self-care (01) ==
PROVIDERS: PCP Family Medicine; Visit Provider Family Medicine
DX: E11.9 Type 2 diabetes mellitus without complications (principal); R74.8 Abnormal levels of other serum enzymes; Z79.899 Other long term (current) drug therapy; I10 Essential (primary) hypertension
CPT/HCPCS: 36415; 80053; 83036; 85025; 85055

== ENCOUNTER 2023-08-25 11:35 | Outpatient (CLI) | payer MEDICARE, SELFPAY ==
[2023-08-25 13:36] LABS: Basophils Absolute Auto 0.1 K/mm3 (0.0-0.1); Basophils Percent Auto 0.4 % (0.2-1.2); Eosinophils Absolute Auto 0.1 K/mm3 (0-0.3); Hematocrit 46.9 % (37.0-47.0); Hemoglobin 14.9 g/dL (12.0-15.0); Immature Granulocyte Absolute 0.03 K/mm3 (0.00-0.031); Immature Granulocyte Percent A 0.3 % (0-0.5); Lymphocytes Absolute Auto 3.48 K/mm3 (0.9-3.2); Lymphocytes Percent Auto 29.3 % (18.3-44.2); Mean Corpuscular HGB Conc 31.8 g/dl (32-36); Mean Corpuscular Hemoglobin 28.4 pg (26-34); Mean Corpuscular Volume 89.3 fl (80-100); Monocytes Absolute Auto 0.8 K/mm3 (0.1-0.6); Neutrophils Absolute Auto 7.4 K/mm3 (1.3-6.7); Platelet Count Result 219 k/mm3 (150-375); Red Blood Count 5.25 M/mm3 (4.2-5.4); Red Cell Distribution Width 14.1 % (11.5-14.5); White Blood Count 11.9 K/mm3 (4.5-10.0)
[2023-08-25 14:03] LABS: Creatinine Urine 20.6 mg/dL
[2023-08-25 14:09] LABS: Vitamin D 25 Hydroxy 74.4 ng/mL
[2023-08-25 14:14] LABS: Microalbumin Urine Random < 6.0 mg/L (0-16.7)
[2023-08-25 14:43] LABS: Alanine Aminotransferase 25 U/L (6-35); Albumin Level 4.6 g/dL (3.5-5.1); Alkaline Phosphatase 57 U/L (38-126); Anion Gap 6 mmol/L (8-16); Aspartate Amino Transferase 35 U/L (14-36); Blood Urea Nitrogen 14 mg/dL (7-17); Calcium 9.5 mg/dL (8.4-10.2); Carbon Dioxide 31 mmol/L (22-30); Chloride 103 mmol/L (98-107); Cholesterol 211 mg/dL (0-200); Estimated Glomerular Filt Rate > 60; Glucose 94 mg/dL (65-110); HDL Direct 49 mg/dL; Potassium 4.1 mmol/L (3.4-5.0); Sodium 140 mmol/L (137-145); Triglycerides 276 mg/dL (<150)
[2023-08-25 14:54] LABS: LDL Cholesterol Direct 119 mg/dL
[2023-08-25 15:58] LABS: Hemoglobin A1C 7.1 % (<5.7)
== END 2023-08-25 11:36 | disposition home or self-care (01) ==
LOC: ANHGOSHLAB 11:37
PROVIDERS: PCP Family Medicine; Visit Provider Family Medicine
DX: E78.5 Hyperlipidemia, unspecified (principal); I10 Essential (primary) hypertension; E11.9 Type 2 diabetes mellitus without complications; E55.9 Vitamin D deficiency, unspecified; E53.8 Deficiency of other specified B group vitamins; Z86.79 Personal history of other diseases of the circulatory system
CPT/HCPCS: 36415; 80053; 80061; 82043; 82306; 82607; 83036; 84443; 85025

== ENCOUNTER 2024-02-18 13:52 | Outpatient (CLI) | payer MEDICARE, SELFPAY ==
--- NOTE | ~2024-02-18 | DEXA_ITS ---
Bone Density Report Name: YASMIN DANIEL Age: 74 Sex: Female Ethnicity: White Date of : 1950 Indication: postmenopausal; screening for osteoporosis; history of glucocorticoids; hysterectomy; Referring Provider: FAIAZN YANEZ Study: Bone densitometry was performed. Exam Date: February 18, 2024 Accession number: [id number] Bone Density: Region BMD T-score Z-score Classification AP Spine(L1-L4) 0.892 -1.4 0.9 Osteopenia Femoral Neck (Left) 0.537 -2.8 -0.8 Osteoporosis Total Hip (Left) 0.752 -1.6 0.2 Osteopenia Femoral Neck (Right) 0.619 -2.1 0.0 Osteopenia Total Hip (Right) 0.743 -1.6 0.1 Osteopenia Total Hip Mean 0.747 -1.6 0.2 Osteopenia World Health Organization criteria for BMD impression classify patients as: Normal (T-score at or above -1.0), Osteopenia (T-score between -1.0 and -2.5), or Osteoporosis (T-score at or below -2.5). 10-year Fracture Risk: FRAX not reported because: Some T-score for Spine Total or Hip Total or Femoral Neck at or below -2.5 Treated for osteoporosis Clinical Information Provided by Patient: Has taken Glucocorticoids Is being treated for osteoporosis Has used the following medications: Fosamax (i.e. alendronate), Vitamin D Has the following medical conditions: Hysterectomy Patient maximum height was 62 Menopause Age: 44 No regular weight bearing exercise Does not regularly consume dairy products Drinks caffeinated beverages Onset of menses at age 11 Number of children 0 Impression: The patient has osteoporosis, based on the Left Femoral Neck T-score. The patient has risk factors, including: history of glucocorticoid therapy. Discussion: It is important to ask patients whether they are taking their medications and to encourage continued and appropriate compliance with their osteoporosis therapies to reduce fracture risk. It is also important to review their risk factors and encourage appropriate calcium and vitamin D intakes, exercise, fall prevention and other lifestyle measures. Follow-Up: Consider a repeat BMD and Vertebral Fracture Assessment (VFA) exam in 2 years or sooner if medically necessary, to reassess this patient's status. Reported by: MARY on 02/18/2024 2:22:00 PM. Reviewed, dictated and finalized at location Bernabe OWENS
--- NOTE | ~2024-02-18 | MM_ITS ---
EXAMINATION: MM screening [facility] BI w vesna HISTORY: Screening mammogram TECHNIQUE: Craniocaudal and mediolateral oblique 3-D tomosynthesis images were obtained and synthetic 2-D images were generated. CAD analysis was submitted and interpreted. COMPARISON: 09/24/2021, 08/16/2020, 08/03/2020, 07/27/2019 BREAST PARENCHYMAL COMPOSITION:Not Dense. There are scattered areas of fibroglandular density. FINDINGS: No suspicious mass, calcification, or architectural distortion are identified in either sangeetha ast to suggest malignancy. There has been no suspicious interval change. IMPRESSION: No mammographic evidence of malignancy. Recommend routine screening mammography in one year. BI-RADS Category 1: Negative Reviewed, dictated and finalized at location .
== END 2024-02-18 13:53 | disposition home or self-care (01) ==
LOC: ANHIMG 13:53
PROVIDERS: PCP Family Medicine; Visit Provider Family Medicine
DX: Z12.31 Encounter for screening mammogram for malignant neoplasm of breast (principal); Z78.0 Asymptomatic menopausal state; M85.88 Other specified disorders of bone density and structure, other site; M81.0 Age-related osteoporosis without current pathological fracture; M85.852 Other specified disorders of bone density and structure, left thigh; M85.851 Other specified disorders of bone density and structure, right thigh
CPT/HCPCS: 77063; 77067; 77080

== ENCOUNTER 2024-03-01 11:16 | Outpatient (CLI) | payer MEDICARE, SELFPAY ==
[2024-03-01 13:21] LABS: Basophils Absolute Auto 0.1 K/mm3 (0.0-0.1); Basophils Percent Auto 0.7 % (0.2-1.2); Eosinophils Absolute Auto 0.3 K/mm3 (0-0.3); Eosinophils Percent Auto 3.1 % (0-4.4); Hematocrit 45.3 % (37.0-47.0); Hemoglobin 14.6 g/dL (12.0-15.0); Immature Granulocyte Absolute 0.04 K/mm3 (0.00-0.031); Immature Granulocyte Percent A 0.4 % (0-0.5); Lymphocytes Absolute Auto 2.93 K/mm3 (0.9-3.2); Lymphocytes Percent Auto 27.9 % (18.3-44.2); Mean Corpuscular HGB Conc 32.2 g/dl (32-36); Mean Corpuscular Hemoglobin 28.9 pg (26-34); Mean Corpuscular Volume 89.5 fl (80-100); Mean Platelet Volume 12.9 fl (7.4-10.4); Monocytes Absolute Auto 0.9 K/mm3 (0.1-0.6); Monocytes Percent Auto 8.9 % (2.6-8.5); Neutrophils Absolute Auto 6.2 K/mm3 (1.3-6.7); Platelet Count Result 266 k/mm3 (150-375); Red Blood Count 5.06 M/mm3 (4.2-5.4); Red Cell Distribution Width 13.6 % (11.5-14.5); White Blood Count 10.5 K/mm3 (4.5-10.0)
[2024-03-01 14:23] LABS: Alanine Aminotransferase 28 U/L (6-35); Albumin Level 4.6 g/dL (3.5-5.1); Alkaline Phosphatase 60 U/L (38-126); Anion Gap 8 mmol/L (4-12); Aspartate Amino Transferase 41 U/L (14-36); Bilirubin,Total 1.1 mg/dL (0.2-1.3); Blood Urea Nitrogen 12 mg/dL (7-17); Calcium 9.5 mg/dL (8.4-10.2); Carbon Dioxide 31 mmol/L (22-30); Chloride 92 mmol/L (98-107); Estimated Glomerular Filt Rate > 60; Glucose 123 mg/dL (65-110); Potassium 4.5 mmol/L (3.4-5.0); Sodium 131 mmol/L (137-145)
== END 2024-03-01 11:17 | disposition home or self-care (01) ==
LOC: ANHGOSHLAB 11:17
PROVIDERS: PCP Family Medicine; Visit Provider Family Medicine
DX: D72.829 Elevated white blood cell count, unspecified (principal); E11.9 Type 2 diabetes mellitus without complications; I10 Essential (primary) hypertension
CPT/HCPCS: 36415; 80053; 83036; 85025

== ENCOUNTER 2024-10-27 07:20 | Outpatient (CLI) | payer MEDICARE, SELFPAY ==
--- OUTSIDE RECORDS SUMMARY | 2024-10-27 07:26 | XMS_ITS | Clinical Summary ---
Author Organization [facility] Address [address], [address] [address] Phone Care Team Providers Care Retail Operations Manager Name Role Phone Portillo Calvo MD Primary Care Provider [phone] Jeromy Cortez DO Unavailable [phone] Allergies No known active allergies Medications metFORMIN (GLUCOPHAGE-XR) 500 MG TABLET SR 24 HR Take 500 mg by mouth 2 times daily. This RX is for Metformin SR. Active alendronate (FOSAMAX) 70 MG Tablet Take 70 mg by mouth every 7 days. Active Immunizations Immunization Administration Dates Next Due Covid-19, Mrna, Lnp-s, Pf, 30 Mcg/0.3 Ml Dose (Mary pearson) 08/28/2020,08/07/2020 Family History Medical History Relation Name Comments Diabetes Brother Heart Disease Brother Skin Cancer Brother Colon Cancer Father Diabetes Father Parkinsonism Father Diabetes Mother Hypertension Mother Diabetes Sister Heart Disease Sister Relation Name Status Comments Brother Father Mother Sister Social History Tobacco Use Types Packs/Day Years Used Date Smoking Tobacco: Never Alcohol Use Standard Drinks/Week Comments Yes 0 (1 standard drink = 0.6 oz pur e alcohol) Comments Unknown Sex and Gender Information Value Date Recorded Sex Assigned at Not on file Legal Sex Female 10:20 PM CDT Gender Identity Not on file Sexual Orientation Not on file Plan of Treatment Health Maintenance Due Date Last Done Comments DEXA Bone Density 1950 Hepatitis C Virus (HCV) Screening 1950 Cologuard 02/15/2000 Immunochemical Fecal Occult Blood 02/15/2000 Mammogram 02/15/2000 Zoster Immunization (1 of 2) 02/15/2000 Pneumococcal Immunization (5 0+ years) (2 of 2 - PPSV23) 06/04/2017 06/04/2016 Influenza Immunization (#1) 02/07/202402/07, 03/25/2019 SARS-COV-2 Immunization ( season) 2024 04/08/2021, 08/28/2020, 08/07/2020 Respiratory Syncytial Virus (RSV) Immunization (Adult) (1 - 1-dose 75+ series) 2025 Colonoscopy 10/17/2025 10/18/2015 Colorectal Cancer Screening 10/17/2025 10/18/2015 Pneumococcal Immunization Combined Discontinued 06/04/2016 DTaP/Tdap/Td Immunization Discontinued 01/18/2017 TdaP Immunization Completed 01/18/2017 Hepatitis B Immunization Aged Out No longer eligible based on patient's age to complete this topic Meningococcal Immunization (ACWY) Aged Out No longer eligible based on patient's age to complete this topic Rotavirus Immunization Aged Out No lo nger eligible based on patient's age to complete this topic Procedures Procedure Name Priority Date/Time Associated Diagnosis Comments COLONOSCOPY Routine 10/18/2015 from Last 3 Months or Most Recently Relevant to Health Maintenance Results * COLONOSCOPY (10/18/2015) Portillo Calvo MD PROCEDURE/MINOR SURGICAL ORDERA BLES Final Result from Last 3 Months or Most Recently Relevant to Health Maintenance [facility] Care Teams Retail Operations Manager Relationship Specialty Start Date End Date Portillo Calvo MD [address] [place] [id number] PCP - General Family Medicine 08/22/15 Jeromy Cortez DO [address] [place] [id number] Consulting Physician Gastroenterology 10/18/15
[2024-10-27 07:47] LABS: Basophils Absolute Auto 0.1 K/mm3 (0.0-0.1); Basophils Percent Auto 0.6 % (0.2-1.2); Eosinophils Absolute Auto 0.1 K/mm3 (0-0.3); Eosinophils Percent Auto 0.8 % (0-4.4); Hematocrit 45.6 % (37.0-47.0); Hemoglobin 14.1 g/dL (12.0-15.0); Immature Granulocyte Absolute 0.04 K/mm3 (0.00-0.031); Immature Granulocyte Percent A 0.4 % (0-0.5); Immature Platelet Fraction Pct 14.2 % (0.9-11.2); Lymphocytes Absolute Auto 2.72 K/mm3 (0.9-3.2); Lymphocytes Percent Auto 28.1 % (18.3-44.2); Mean Corpuscular HGB Conc 30.9 g/dl (32-36); Mean Corpuscular Hemoglobin 28.2 pg (26-34); Mean Corpuscular Volume 91.2 fl (80-100); Mean Platelet Volume 13.2 fl (7.4-10.4); Monocytes Absolute Auto 0.6 K/mm3 (0.1-0.6); Monocytes Percent Auto 6.6 % (2.6-8.5); Neutrophils Absolute Auto 6.1 K/mm3 (1.3-6.7); Neutrophils Percent Auto 63.5 % (45.5-73.1); Platelet Count Result 207 k/mm3 (150-375); White Blood Count 9.7 K/mm3 (4.5-10.0)
[2024-10-27 08:06] LABS: Alanine Aminotransferase 28 U/L (6-35); Albumin Level 4.5 g/dL (3.5-5.1); Alkaline Phosphatase 48 U/L (38-126); Anion Gap 7 mmol/L (4-12); Aspartate Amino Transferase 27 U/L (14-36); Bilirubin,Total 1.1 mg/dL (0.2-1.3); Blood Urea Nitrogen 18 mg/dL (7-17); Calcium 9.1 mg/dL (8.4-10.2); Carbon Dioxide 28 mmol/L (22-30); Chloride 104 mmol/L (98-107); Cholesterol 242 mg/dL (0-200); Estimated Glomerular Filt Rate > 60; Glucose 152 mg/dL (65-110); HDL Direct 46 mg/dL; Potassium 4.4 mmol/L (3.4-5.0); Sodium 139 mmol/L (137-145); Triglycerides 273 mg/dL (<150)
[2024-10-27 08:17] LABS: LDL Cholesterol Direct 116 mg/dL
[2024-10-27 09:05] LABS: Hemoglobin A1C 6.7 % (<5.7)
[2024-10-27 09:30] LABS: Creatinine Urine 156.8 mg/dL
[2024-10-27 09:35] LABS: Microalbumin Urine Random 10.9 mg/L (0-16.7)
== END 2024-10-27 07:21 | disposition home or self-care (01) ==
LOC: ANHLAB 07:22
PROVIDERS: PCP Family Medicine; Visit Provider Family Medicine
DX: E78.5 Hyperlipidemia, unspecified (principal); I10 Essential (primary) hypertension; E55.9 Vitamin D deficiency, unspecified; E11.9 Type 2 diabetes mellitus without complications; E53.8 Deficiency of other specified B group vitamins
CPT/HCPCS: 36415; 80053; 80061; 82043; 82306; 82607; 83036; 84443; 85025; 85055

== ENCOUNTER 2025-04-27 09:53 | Outpatient (CLI) | payer MEDICARE, SELFPAY ==
--- OUTSIDE RECORDS SUMMARY | 2025-04-27 11:34 | XMS_ITS | Clinical Summary ---
Author Organization [facility] Address [address], [address] [address] Phone Care Team Providers Care Border Inspector Name Role Phone Portillo Calvo MD Primary Care Provider [phone] Jeromy Cortez DO Unavailable [phone] Allergies No known active allergies Medications [...] Health Maintenance Due Date Last Done Comments Hepatitis C Virus (HCV) Screening 1950 Cologuard 1995 Immunochemical Fecal Occult Blood 1995 Zoster Immunization (1 of 2) 02/15/2000 Medicare Initial AWV [id number] 02/07/2016 Pneumococcal Immunization (5 0+ years) (2 of 2 - PCV20 or PCV21) 06/04/2017 06/04/2016 Influenza Immunization (#1) 02/06/202502/07, 03/25/2019 SARS-COV-2 Immunization (4 - season) 2025 04/08/2021, 08/28/2020, 08/07/2020 Respiratory Syncytial Virus (RSV) Immunization (Adult) (1 - 1-dose 75+ series) 2025 Colonoscopy 10/17/2025 10/18/2015 Colorectal Cancer Screening 10/17/2025 Pneumococcal Immunization Combined Discontinued 06/04/2016 DTaP/Tdap/Td Immunization Discontinued 01/18/2017 TdaP Immunization Completed 01/18/2017 Hepatitis B Immunization Aged Out No longer eligible based on patient's age to complete this topic Human Papillomavirus (HPV) Immunization Aged Out No longer eligible based [...] Most Recently Relevant to [place] [address] MEDICARE [employer] Care Teams Border Inspector Relationship Specialty Start Date End Date Portillo Calvo MD [address] [place] [address] PCP - General Family Medicine 08/22/15 Jeromy Cortez DO [address] [place] [address] Consulting Physician Gastroenterology 10/18/15
[2025-04-27 12:52] LABS: Alanine Aminotransferase 60 U/L (6-35); Albumin Level 4.6 g/dL (3.5-5.1); Alkaline Phosphatase 54 U/L (38-126); Anion Gap 9 mmol/L (4-12); Aspartate Amino Transferase 64 U/L (14-36); Bilirubin,Total 1.1 mg/dL (0.2-1.3); Blood Urea Nitrogen 9 mg/dL (7-17); Calcium 9.4 mg/dL (8.4-10.2); Carbon Dioxide 28 mmol/L (22-30); Chloride 101 mmol/L (98-107); Estimated Glomerular Filt Rate > 60; Glucose 116 mg/dL (65-110); Potassium 4.8 mmol/L (3.4-5.0); Sodium 138 mmol/L (137-145); Total Protein 7.7 g/dL (6.3-8.2)
[2025-04-27 13:38] LABS: Hemoglobin A1C 6.9 % (<5.7)
== END 2025-04-27 09:54 | disposition home or self-care (01) ==
LOC: ANHGOSHLAB 09:54
PROVIDERS: PCP Family Medicine; Visit Provider Family Medicine
DX: E11.9 Type 2 diabetes mellitus without complications (principal); I10 Essential (primary) hypertension
CPT/HCPCS: 36415; 80053; 83036

== ENCOUNTER → 2025-05-09 08:41 | Outpatient (REF) | payer MEDICARE, SELFPAY ==
--- NOTE | 2025-05-09 08:41 | S_PTH ---
PATIENT: Jeri Do LOC: [facility] U#:[id number] AGE/SX: 75/F ROOM: RE05/09/[address]: Estella Roland MD : 1950 BED: DIS: SPEC #: [id number] RECD: 05/09/25 10:29 STATUS: BRIDGETTE STARKEY #: [id number] BERNA: 05/09/25 08:[address]: Estella Roland DEPT: [facility] RECD BY: Haider Umana ENTERED: 05/09/25 10:29 SP TYPE: Surgical OTHR DR: Chante DeL una MD Tissues: A - LESION Procedures: Gross and Microscopic Level 4
--- OUTSIDE RECORDS SUMMARY | 2025-05-09 08:54 | XMS_ITS | Clinical Summary ---
Author Organization [facility] Address [address] [place], [address] [address] Phone Care Team Providers Care Music Composer Name Role Phone Portillo Calvo MD Primary Care Provider [phone] Jeromy Cortez DO Unavailable [phone] Allergies No known active allergies Medications [...] Most Recently Relevant to [place] [address] MEDICARE [employer] Care Teams Music Composer Relationship Specialty Start Date End Date Portillo Calvo MD [address] [place] [address] PCP - General Family Medicine 08/22/15 Jeromy Cortez DO [address] [place] [address] Consulting Physician Gastroenterology 10/18/15
== END ==
LOC: ANHLAB 08:41
PROVIDERS: PCP Family Medicine; Visit Provider Plastic Surgery
DX: D48.5 Neoplasm of uncertain behavior of skin (principal)
CPT/HCPCS: 88305